=== PATIENT | female | born 2000 | race American Indian/Alaskan Native ===

== ENCOUNTER 2021-01-20 14:59 | Emergency (ER) | payer SELFPAY ==
[2021-01-20 15:33] VITALS: BP 126/77
--- NOTE | 2021-01-20 16:34 | Event Note ---
ED Screening Note Date of service: 01/20/21 Time: 16:32 ED Screening Note: 20-year-old female patient presents to the emergency department with complaints of vaginal irritation for 2 days. Patient states symptoms began after using [employer]. States she noticed her "lips were red and swollen." Patient has also noticed a "foul odor." Last menstrual cycle was January 14. General: Awake, appropriately interactive, no acute distress. Neck: Supple. Full range of motion intact. Cardiovascular: Normal peripheral perfusion. Pulmonary: No respiratory distress. Patient is speaking normally without use of accessory muscles. Skin: No apparent rashes or lesions. Neurological: No facial asymmetry. Speech is clear. Follows commands. Patient is alert and oriented. Musculoskeletal: Moves all four extremities spontaneously with normal range of motion. Psych: Cooperative. Appropriate mood and affect. I have greeted and performed a focused rapid initial assessment of this patient. A comprehensive ED assessment and evaluation of the patient, analysis of all test results, and completion of the medical decision-making process will be conducted by additional ED providers. This initial assessment/diagnostic orders/clinical plan/treatment(s) is/are subject to change based on patients health status, clinical progression and re-assessment. Further treatment and workup at subsequent clinical provider's discretion. Patient/guardian urged not to elope from the ED as their condition may be serious if not clinically assessed and managed.
== END 2021-01-20 20:30 | disposition home or self-care (01) ==
LOC: ED 14:59
DX: N89.8 Other specified noninflammatory disorders of vagina (principal)
CPT/HCPCS: 99282

== ENCOUNTER 2021-02-24 17:03 | Emergency (ER) | payer SELFPAY | END 2021-02-24 19:26 | disposition left against medical advice (07) | LOC: ED 17:03 | DX: R10.9 Unspecified abdominal pain (principal); Z53.21 Procedure and treatment not carried out due to patient leaving prior to being seen by health care provider ==